=== PATIENT | female | born 2000 | race Caucasian/White ===

== ENCOUNTER 2023-02-01 12:39 | Inpatient (IN) | payer OTHER ==
[~2023-02-01] VITALS: Ht 157.5 cm; Wt 74.1 kg
[2023-02-09] VITALS (30 sets, daily range): BP systolic 103–143; BP diastolic 52–94; PULSE 43–90; TEMP 97.7–97.9
--- NOTE | 2023-02-09 06:30 | NUR ---
PT ORIENTED TO ROOM. CHANGED INTO GOWN. FOB PRESENT AND SUPPORTIVE. VS ASSESSED, WNL. FHT ASSESSED. CATAGORY 1 AFTER FLUID BOLUS STARTED. PT DENIES VAGINAL BLEED, OR LEAKING OF FLUID. PT SAID SHE HAS HAD A FEW CX BUT NOTHING THAT WAS PAINFUL. TRACING 9-10 MIN APPART. IV STARTED. BLOOD SENT TO LAB.
[2023-02-09 07:16] LABS: BASO % 0.4 % (0.0-2.0); EOS # 0.1 K/mm3 (0.0-0.7); EOS % 2.3 % (0.0-4.0); GRAN # 3.1 K/mm3 (1.4-6.5); GRAN % 58.6 % (42.2-75.2); HEMOGLOBIN 12.3 g/dl (12.5-16.0); LYMPH # 1.7 K/mm3 (1.2-3.4); LYMPH % 32.4 % (20.0-51.0); MEAN CELL VOLUME 91 fl (80.0-100.0); MEAN CORPUSCULAR HEMOGLOBIN 31 pg (27-31); MEAN CORPUSCULAR HGB CONC 35 g/dl (33.0-37.0); MEAN PLATELET VOLUME 9.9 fl (7.4-10.4); MONO # 0.3 K/mm3 (0.1-0.6); MONO % 6.1 % (1.7-9.3); PLATELET COUNT 166 K/mm3 (130-400); RED BLOOD COUNT 3.93 M/mm3 (4.10-5.30); REDCELL DISTRIBUTION WIDTH-CV 12.3 % (11.5-14.5)
[2023-02-09 07:17] LABS: HEMATOCRIT 35.7 % (37.0-47.0)
[2023-02-09] MEDS ORDERED: PRENATAL TABLET PO (07:19)
--- NOTE | 2023-02-09 09:20 | NUR ---
DR HERNANDEZ ON UNIT AND AT BEDSIDE. OB ULTRASOUND TO CONFIRM VERTEX POSITION. SVE /-3. AROM. CLEAR FLUID. NO ODOR NOTED.
--- NOTE | 2023-02-09 10:59 | NUR ---
1033- CALLED ADDIS TO LET HIM KNOW PT WAS REQUESTING AN EPIDURAL. 1050- ADDIS AT BEDSIDE. PT IN SITTING POSTION. BP AND O2 MONITORS ON. BOLUS INFUSING. 1059- TEST DOSE. PT TOLERATED WELL. PT REPOSITIONED TO .
[2023-02-10] VITALS: BP 110/69; BP 154/78; PULSE 54; PULSE 67; TEMP 98; TEMP 98.7
[2023-02-10 06:33] LABS: HEMATOCRIT 31.8 % (37.0-47.0)
[2023-02-10 07:16] VITALS: BP 122/83; PULSE 48; TEMP 98.1
--- NOTE | 2023-02-10 10:11 | NUR ---
Initial visit; Parents thanked [employer] for offering congratulations and God's blessings for the of their daughter. [employer] thanked family for choosing [facility].
== END 2023-02-10 14:10 | disposition home or self-care (01) | DRG 807 ==
LOC: LDR 02-09 06:14 → OB 02-09 06:14
PROVIDERS: ADMIT Obstetrics & Gynecology
PROC: 10E0XZZ Delivery of Products of Conception, External Approach (ICD-10-PCS; principal; 2023-02-09)
PROC: 3E033VJ Introduction of Other Hormone into Peripheral Vein, Percutaneous Approach (ICD-10-PCS; 2023-02-09)
PROC: 10907ZC Drainage of Amniotic Fluid, Therapeutic from Products of Conception, Via Natural or Artificial Opening (ICD-10-PCS; 2023-02-09)
DX: O48.0 Post-term pregnancy (principal); Z37.0 Single live birth; Z3A.40 40 weeks gestation of pregnancy
CPT/HCPCS: J2590; J2795; J7120